=== PATIENT | female | born 1940 | race Caucasian/White ===

== ENCOUNTER 2018-01-10 05:32 | Inpatient (IN) | payer OTHER, MEDICARE ==
[2018-01-03 13:03] LABS: URINE BILIRUBIN NEGATIVE (Negative); URINE BLOOD NEGATIVE (Negative); URINE CLARITY CLEAR; URINE COLOR YELLOW; URINE GLUCOSE-RANDOM* NEGATIVE (Negative); URINE KETONES TRACE (Negative); URINE LEUKOCYTES-REFLEX NEGATIVE (Negative); URINE NITRITE-REFLEX NEGATIVE (Negative); URINE PROTEIN (DIPSTICK) NEGATIVE (Negative); URINE SPECIFIC GRAVITY >= 1.030 (1.005-1.035); URINE UROBILINOGEN 0.2 E.U./dl (0.2-1.0)
[2018-01-03 13:04] LABS: HEMATOCRIT 41.2 % (37.0-47.0); HEMOGLOBIN 13.8 gm/dL (12.0-15.0); MCH 29.7 pg (26.0-34.0); MCHC 33.6 g/dL (28.0-37.0); MCV 88.3 fL (80.0-100.0); RBC 4.66 mil/uL (4.20-5.00); RDW 14.3 % (10.5-14.5)
[2018-01-03 13:09] LABS: ALBUMIN 3.6 g/dL (3.4-5.0); CALCIUM 9.3 mg/dL (8.5-10.1); CREATININE 0.8 mg/dL (0.6-1.0); POTASSIUM 4.1 mmol/L (3.5-5.1)
[2018-01-03 13:15] LABS: PROTIME 9.9 Seconds (9.3-11.4)
[~2018-01-10] VITALS: Ht 170.2 cm; Wt 79.0 kg
--- NOTE | ~2018-01-10 | EKG ---
[address] [address] ELECTROCARDIOGRAM REPORT Name: WALLY SONG Room #: PRE IN .#: [id number] Admission: Attend Phys: Prasanth Avila MD Discharge: Date of : 36 Report #: [id number] THIS REPORT FOR: //name// [facility] Test Date: 2018-01-03 Test Time: 12:57:05 Pat Name: WALLY SONG Department: Room: Gender: F Still Cleaner: ana : 1940 Requested By: Prasanth Avila Order Number: [id number] MD: Stevenson Howell Measurements Intervals [place] Rate: 68 P: 42 OH: 166 QRS: -64 QRSD: 117 T: 55 QT: 396 QTc: 422 Interpretive Statements Sinus rhythm Left anterior fascicular block Nonspecific intraventricular conduction delay No previous ECG available for comparison Electronically Signed On 01-03-2018 17:17:44 CDT by Stevenson Howell [email or web address] <ELECTRONICALLY SIGNED> By: Stevenson Howell MD, [facility] 01/03/18 1717 1257 [id number] Stevenson Howell MD, FACC /EPI
--- NOTE | ~2018-01-10 | O ---
[facility] [place] [address] [place] [address] OPERATIVE REPORT Name: WALLY SONG Room #: 405-P ADM IN M.R.#: [id number] Admission: 01/10/18 Attend Phys: Prasanth Avila MD Discharge: Date of : 38 Report #: [id number] THIS REPORT FOR: //name// CC: Zena Avila DATE OF SERVICE: 01/10/2018 PREOPERATIVE DIAGNOSIS: Right hip osteoarthritis. POSTOPERATIVE DIAGNOSIS: Right hip osteoarthritis. PROCEDURE: Right total hip arthroplasty. SURGEON: Prasanth Avila MD. ENVIRONMENTAL ASSISTANT: Yani Aguilar PA-C. ANESTHESIA: General endotracheal. INDICATIONS FOR ENVIRONMENTAL ASSISTANT: Throughout the case, extensive retraction and manipulation of the hip was required including dislocation and reduction of the hip. This was afforded to me by my family services assistant. IMPLANTS: Wills [employer] Nephew size 13 high offset Synergy press fit stem, a size 54 R3 acetabular cup with 1 acetabular screw, a size 36 plus 0 cobalt chrome head. ESTIMATED BLOOD LOSS: 100 mL. COMPLICATIONS: None. SPECIMENS: None. CONDITION UPON LEAVING THE OPERATING ROOM: Stable. INDICATION FOR PROCEDURE: The patient is a 77-year-old female with severe right hip osteoarthritis. She had failed conservative treatment for this and after discussion with her, she elected for right total hip arthroplasty. DESCRIPTION OF PROCEDURE: Risks, benefits, alternatives, complications were discussed in detail with the patient including but not limited to risk of anesthesia, risk of damage to nerves, arteries, blood vessels, risk for infection, bleeding, risk for continued hip pain, leg length discrepancy, instability and need for reoperation. Informed consent was obtained from the patient. The right hip was appropriately marked in the preoperative holding [address] [address] OPERATIVE REPORT Name: WALLY SONG Room #: 405-P [facility] IN M.R.#: [id number] Admission: 01/10/18 Attend Phys: Prasanth Avila MD Discharge: Date of : 38 Report #: [id number]. IV Ancef was given for preoperative antibiotics. She was brought to the operating room and placed in the supine position on the operating room table. General endotracheal anesthesia was induced without complication. She was then placed in the left lateral decubitus position with the right hip uppermost. Right hip and lower extremity were prepped and draped in normal sterile fashion. Timeout was performed properly identifying the patient and procedure as well as the instrumentation and implants. All in the operating room were in agreement. Standard posterior approach to the hip was made with 10 blade through the skin. Dissection was taken down to the fascia with Bovie cautery and a Bateman elevator was used to clean off the fascia. Fresh 10 blade was used to make a fascial incision. This was taken proximally and distally with curved Espinoza scissor. The trochanteric bursa was taken down. The piriformis tendon was identified, tagged and taken down with Bovie cautery. Short external rotators were also taken down with Bovie cautery. Capsulotomy was made and capsule ends were tagged for later repair. The hip was dislocated and there was extensive osteoarthritic change of the femoral head. Femoral neck cut 1 cm proximal to lesser trochanter based on preoperative templating was made and the femoral head was removed. Deep acetabular retractors were placed. The labrum was removed sharply. Pulvinar was removed with Bovie cautery. Acetabulum was then sequentially reamed up to a size 54, at which point, there was excellent bleeding cancellous bone. A size 53 trial cup was placed and found to have a good fit. Final size 54 R3 acetabular cup was then placed and seated. One acetabular screw for backup fixation was placed. After this, the polyethylene liner for 36 head was placed. Attention was turned to the femur. This was reamed and broached up to a size 13, at which point, the size 13 broach was stable. This was trialed with a high offset neck and a 36 plus 0 head. Hip was reduced, taken through range of motion, found to be stable, found to have equal leg lengths. Hip was dislocated. Broach was removed. A final size 13 high offset Synergy press fit stem was placed. This was trialed again with a size 36 plus 0 head. Hip was reduced, taken through range of motion, found to be stable, found to have equal leg length. Hip was dislocated one last time and the trial head was removed. The final size 36 plus 0 cobalt chrome head was placed. Hip again was reduced, taken through range of motion, found to be stable, found to have equal leg lengths. Wound was thoroughly irrigated with normal saline. A periarticular injection consisting of morphine, ropivacaine, epinephrine, Toradol was placed around the hip joint. A gram of vancomycin was placed deep in the joint. The piriformis and capsule were repaired with 0 FiberWire. The fascia was closed with 0 Vicryl, skin was closed with 2-0 Vicryl, 3-0 Monocryl. Dermabond and VIJAY dressing was applied. The patient tolerated this procedure well and went to recovery room under care of anesthesia postoperatively. <ELECTRONICALLY SIGNED> By: Prasanth Avila MD 01/13/18 1133 1428 1457 Prasanth Avila MD /nt
[~2018-01-10 05:32] MED LIST: ASPIR 8181 M1 PO; CELEBREX 200 M200 M1 PO; SIMVASTATIN40 MG PO
[2018-01-10 10:53] VITALS: BP 135/63
[2018-01-10 17:31] VITALS: BP 115/53
[2018-01-10 20:00] VITALS: BP 114/52
[2018-01-11] VITALS: BP 106/52
[2018-01-11 04:00] VITALS: BP 105/43
[2018-01-11 05:24] LABS: HEMATOCRIT 33.3 % (37.0-47.0); HEMOGLOBIN 11.2 gm/dL (12.0-15.0); MCH 29.9 pg (26.0-34.0); MCHC 33.6 g/dL (28.0-37.0); MCV 89.1 fL (80.0-100.0); RBC 3.74 mil/uL (4.20-5.00); RDW 14.2 % (10.5-14.5)
[2018-01-11 07:54] VITALS: BP 105/57
[2018-01-11 16:51] VITALS: BP 105/58
[2018-01-11 21:09] VITALS: BP 104/52
[2018-01-12 04:13] VITALS: BP 129/63
[2018-01-12 05:27] LABS: HEMATOCRIT 32.7 % (37.0-47.0); MCH 30.1 pg (26.0-34.0); MCHC 33.6 g/dL (28.0-37.0); MCV 89.6 fL (80.0-100.0); RBC 3.65 mil/uL (4.20-5.00); RDW 14.4 % (10.5-14.5); WBC 9.7 thou/uL (4.0-11.0)
[2018-01-12 07:17] VITALS: BP 146/60
[2018-01-12 16:20] VITALS: BP 132/54
[2018-01-12 20:07] VITALS: BP 122/69
[2018-01-13 04:44] VITALS: BP 135/61
[2018-01-13 05:28] LABS: HEMATOCRIT 32.1 % (37.0-47.0); HEMOGLOBIN 10.8 gm/dL (12.0-15.0); MCH 29.8 pg (26.0-34.0); MCHC 33.6 g/dL (28.0-37.0); MCV 88.8 fL (80.0-100.0); RBC 3.61 mil/uL (4.20-5.00); RDW 14.4 % (10.5-14.5); WBC 9.4 thou/uL (4.0-11.0)
[2018-01-13 07:40] VITALS: BP 144/56
[2018-01-13 09:58] VITALS: BP 144/56
[2018-01-13] MEDS ORDERED: HYDROCODON-ACE1 EAC7 PO (11:31)
[2018-01-13] MEDS ORDERED: NEURONTIN 300300 M1 PO (11:31)
[2018-01-13] MEDS ORDERED: TRI-BUFFERED A325 M1 PO (11:31)
[2018-01-13 12:00] VITALS: BP 144/56
[2018-01-13 13:40] VITALS: BP 144/56
== END 2018-01-13 15:07 | disposition home health service (06) | DRG 470 ==
LOC: 4N 05:32 → TBA 05:32 → PRE 15:13 → 4N 17:27 → PRE 01-11 05:33 → ENTRNSPT 01-13 14:50 → EDTRNSPTSTS 01-13 14:58 → 4N 01-13 15:07
PROVIDERS: Orthopaedic Surgery
PROC: 0SR90JA Replacement of Right Hip Joint with Synthetic Substitute, Uncemented, Open Approach (ICD-10-PCS; principal; 2018-01-10)
DX: M16.11 Unilateral primary osteoarthritis, right hip (principal); M17.12 Unilateral primary osteoarthritis, left knee; M17.11 Unilateral primary osteoarthritis, right knee; M19.012 Primary osteoarthritis, left shoulder; M19.011 Primary osteoarthritis, right shoulder
CPT/HCPCS: 10790; 50010; 50101; 50382; 50414; 51771; 53000; 53078; 53367; 54118; 56524; 56527; 56528; 56530; 57095; 62110; 62900; 70005

== ENCOUNTER → 2020-11-12 | Outpatient (CLI) | payer OTHER, MEDICARE ==
[~2020-11-12] MED LIST changes: +HYDROCODON-ACE1 EAC7 PO; +NEURONTIN 300300 M1 PO; +TRI-BUFFERED A325 M1 PO; +TYLENOL EXTRA500 MG PO
== END ==
LOC: LAB 11:12
PROVIDERS: ATTEND Orthopaedic Surgery
DX: Z01.812 Encounter for preprocedural laboratory examination (principal); Z20.822 Contact with and (suspected) exposure to COVID-19

== ENCOUNTER 2020-11-18 10:10 | Inpatient (IN) | payer OTHER, MEDICARE ==
[2020-11-12 10:50] LABS: URINE BILIRUBIN NEGATIVE (Negative); URINE BLOOD TRACE (Negative); URINE CLARITY CLEAR; URINE COLOR YELLOW; URINE GLUCOSE-RANDOM* NEGATIVE (Negative); URINE KETONES NEGATIVE (Negative); URINE LEUKOCYTES-REFLEX TRACE (Negative); URINE NITRITE-REFLEX NEGATIVE (Negative); URINE PROTEIN (DIPSTICK) NEGATIVE (Negative); URINE UROBILINOGEN 0.2 E.U./dl (0.2-1.0)
[2020-11-12 10:55] LABS: HEMATOCRIT 43.2 % (37.0-47.0); HEMOGLOBIN 14.1 gm/dL (12.0-15.0); MCH 29.8 pg (26.0-34.0); MCHC 32.6 g/dL (28.0-37.0); MCV 91.5 fL (80.0-100.0); RBC 4.72 mil/uL (4.20-5.00); RDW 14.3 % (10.5-14.5); WBC 7.8 thou/uL (4.0-11.0)
[2020-11-12 11:08] LABS: PROTIME 10.3 Seconds (9.3-11.4)
[2020-11-12 11:19] LABS: ALBUMIN 4.1 g/dL (3.4-5.0); CALCIUM 9.2 mg/dL (8.5-10.1); CREATININE 0.8 mg/dL (0.6-1.0); POTASSIUM 4.3 mmol/L (3.5-5.1)
[~2020-11-18] VITALS: Ht 172.7 cm; Wt 77.1 kg
[2020-11-18 12:14] VITALS: BP 163/74
[2020-11-18 15:45] VITALS: BP 150/63
[2020-11-18 16:00] VITALS: BP 155/79
[2020-11-18 16:15] VITALS: BP 153/124
[2020-11-18 16:30] VITALS: BP 144/72
--- NOTE | 2020-11-18 19:26 | NUR ---
[age] YEAR OLD FEMALE ADMITTED TO [facility] ROOM 445 DUE TO HAVING A LEFT TOTAL KNEE REPLACEMENT. VIJAY DRESSING AND POLAR PACK IN PLACE. VSS, IVF INFUSING PER ORDER. PT DENEIS PAIN/SOA DURING ADMISSION ASSSESSMENT. PT BROTHER AT BEDSIDE. WILL CONTINUE TO MONITOR.
[2020-11-18 19:51] VITALS: BP 130/60
--- NOTE | 2020-11-19 04:41 | NUR ---
PT S/P L KNEE. POLAR EVELIN AND VIJAY DRSG IN PLACE. LEFT FOOT WITH GOOD CSM. SCDS AND TEDS IN PLACE. PT ASSISTED TO THE BSC, HAD DIFFICULTY OR RATHER NO STRENGTH TO GET BACK IN BED-REQUIRING ASSIST X 3. PT GIVEN NORCO FOR 5/10 PAIN. AFEBRILE. DENIES ANY GI OR DISCOMFORT. APPEARS TO BE RESTING COMFORTABLY AT THIS TIME.
[2020-11-19 05:24] LABS: HEMATOCRIT 33.1 % (37.0-47.0); HEMOGLOBIN 10.9 gm/dL (12.0-15.0); MCH 30.5 pg (26.0-34.0); MCV 92.5 fL (80.0-100.0); RBC 3.58 mil/uL (4.20-5.00); RDW 14.4 % (10.5-14.5); WBC 11.3 thou/uL (4.0-11.0)
[2020-11-19 09:25] VITALS: BP 116/75
--- NOTE | 2020-11-19 11:24 | NUR ---
ASSUMED PT CARE THIS AM. PT VSS, A&OX4. PT PLEASANT, COOPERATIVE WITH STAFF. MAKES NEEDS KNOWN. PAIN MANAGED WITH PAIN MEDS GIVEN. DRESSING ON LEFT KNEE IS C/D/I. POLAR PACK, TEODORO HOSE, AND SCD'S ON. CALLING APPROPRIATELY WHEN NEEDED. FALL PRECAUTIONS ARE IN PLACE, USING A BED AMES WHEN NEEDED. IV PATENT. MEDS TAKEN WELL THIS AM.
--- NOTE | 2020-11-19 13:15 | NUR ---
ASSESSMENT: CM REVIEWED CHART AND SPOKE WITH PATIENT. PT IS S/P TOTAL KNEE REPLACEMENT. PT LIVES IN A HOME ALONE AND STATES HER THIS PAST YEAR. PT REPORTS THAT SHE HAS ABOUT TWO STEPS TO ENTER THE HOME AND NO STEPS SHE HAS TO USE ONCE INSIDE. PT REPORTS THAT SHE NORMALLY USES HER WALKER AT ALL TIMES BUT ALSO HAS A CANE AT HOME. PT STATES SHE IS PLANNING ON GOING TO [facility] AT DISCHARGE AND REPORTS SHE HAS ALREADY SPOKEN TO [facility] BEFORE ADMITTING. CM NOTIFIED TERRI PAVAN AT [facility] AND SENT REFERRAL. CM ALSO FAXED UPDATED THERAPY NOTES AND NEGATIVE COVID TEST PRIOR TO SURGERY (PAVAN REPORTS THEY DO NOT NEED ANOTHER COVID TEST COMPLETED). [facility] IS REVIEWING REFERRAL. PT CONTINUING TO WORK WITH THERAPY AND PAIN MANAGEMENT. CM WILL CONTINUE TO FOLLOW TO ASSIST NEEDED.
[2020-11-19 20:17] VITALS: BP 137/69
--- NOTE | 2020-11-19 23:51 | NUR ---
ASSESSMENT COMPLTED. PT IS ALERT AND ORIENTED.VIJAY DRSG AND POLAR EVELIN IN PLACE TO LEFT KNEE. PRN NORCO GIVEN. PT VOIDING OKAY.GOOD CSM TO LEFT FOOT. NO FURTHER CONCERNS AT THIS TIME.
[2020-11-20 05:15] LABS: HEMATOCRIT 32.1 % (37.0-47.0); HEMOGLOBIN 10.7 gm/dL (12.0-15.0); MCH 30.6 pg (26.0-34.0); MCHC 33.4 g/dL (28.0-37.0); MCV 91.6 fL (80.0-100.0); RBC 3.51 mil/uL (4.20-5.00); RDW 14.2 % (10.5-14.5); WBC 10.1 thou/uL (4.0-11.0)
[2020-11-20 07:15] VITALS: BP 128/56
--- NOTE | 2020-11-20 08:54 | NUR ---
ON-GOING ASSESSMENT: CM REVIEWED CHART. CM REACHED OUT TO TERRI BROWNE AT [facility] WHO REPORTS THEY CAN ACCEPT PT. PER ORTHO NOTE PATIENT WILL LIKELY BE STABLE FOR DISCHARGE TUESDAY 11/21, CM NOTIFIED GIBRAN AT [facility] WHO REPORTS THEY CAN PLAN A TENTATIVE PICKUP TIME FOR TOMORROW 11/21/20 AT 1300. CM NOTIFIED ATTENDING. CM WILL CONTINUE TO FOLLOW TO ASSIST NEEDED.
--- NOTE | 2020-11-20 10:13 | O ---
[facility] [place] [address] [place] [address] OPERATIVE REPORT Name: WALLY SONG Room #: 445-P ADM IN M.R.#: [id number] Admission: 11/18/20 Attend Phys: Prasanth Avila MD Discharge: Date of : 38 Report #: [id number] THIS REPORT FOR: cc: FAM - Family physician unknown FAM - Family physician unknown Prasanth Avila MD ~ DATE OF SERVICE: 11/18/2020 PREOPERATIVE DIAGNOSIS: Left knee osteoarthritis. POSTOPERATIVE DIAGNOSIS: Left knee osteoarthritis. PROCEDURE: Left total knee arthroplasty using Navio robotic transportation assistant. SURGEON: Prasanth Avila MD. MOBILE BATTERY TECHNICIAN: Yani Aguilar PA-C. INDICATIONS FOR MOBILE BATTERY TECHNICIAN: Throughout the case, extensive retraction and manipulation of the knee was required. This was afforded to me by my transportation assistant. ANESTHESIA: LMA with adductor canal block. IMPLANTS: Wills and Nephew size 6 cobalt chrome Journey II BCS femur, a size 4 tibia, size 12 constrained polyethylene and size 35 patella. TOURNIQUET TIME: 54 minutes. ESTIMATED BLOOD LOSS: 25 mL. COMPLICATIONS: None. SPECIMENS: None. CONDITION UPON LEAVING THE OPERATING ROOM: Stable. INDICATIONS FOR PROCEDURE: The patient is an 80-year-old female with left knee valgus osteoarthritis. She had failed conservative measures for this and after discussion with her, she elected for left total knee arthroplasty. DESCRIPTION OF PROCEDURE: Risks, benefits, alternatives, complications were discussed in detail with the patient including but not limited to risk of anesthesia, risk of damage to nerves, arteries, blood vessels, risk for infection, bleeding, risk for continued knee pain, need for reoperation. Informed consent was obtained from the patient. Left knee was appropriately [facility] [address] [place] [address] OPERATIVE REPORT Name: WALLY SONG Room #: 445-P ADM IN M.R.#: [id number] Admission: 11/18/20 Attend Phys: Prasanth Avila MD Discharge: Date of : 38 Report #: [id number] marked in the preoperative holding area. IV Ancef was given for preoperative antibiotics. She was brought to the operating room and placed in supine position on operating room table. LMA anesthesia was induced without complication. Tourniquet was placed on the left thigh. Left lower extremity was prepped and draped in normal sterile fashion. Timeout was performed properly identifying the patient and procedure as well as the instrumentation and implants. All in the operating room were in agreement. Left lower extremity was exsanguinated, tourniquet was inflated. Tourniquet time was 54 minutes. Standard midline approach to knee was made with a #10 blade through the skin. Dissection was taken down sharply to the fascia and deep flaps were developed medially and laterally. Fresh #10 blade was used to make a medial parapatellar arthrotomy and the knee was inspected. There was severe lateral compartment osteoarthritis with moderate medial and patellofemoral osteoarthritis. ACL and PCL were removed sharply. Reference pins were placed in the femur and the tibia. The knee was then digitally mapped using the Embedly robotic system. Intraoperative plan was made and we sized the size 6 femur with a size 4 tibia and a 10 spacer. After acceptance of the intraoperative plan, the distal femoral cut was made with Navio bur. Distal femoral cutting block was pinned in place and chamfer cuts were made. Attention was then turned to the tibia. Remainder of the menisci removed with Bovie cautery. Tibial resection guide was pinned in place using the Navio for placement and tibial resection was made. After this, flexion and extension gaps were checked and found to have good balance laterally in flexion and extension. She had significant laxity medially given her underlying valgus deformity. It was felt we could make up for this with a constrained implant. After this, tibia was sized, found to be a size 4. Size 4 tibial trial was placed, pinned and punched. A size 6 femoral trial was placed and box cut was made. This was then trialed with a size 10 up to a size 12 polyethylene and a size 12 constrained polyethylene demonstrated 1-2 mm of laxity laterally and 2-3 mm of laxity medially throughout range of motion. After this, 9 mm of bone was resected from the posterior surface of the patella and a size 35 patellar trial button was placed. Knee was taken through range of motion, found to be stable, found to have good patellar tracking. Trial components were removed. Bony ends were thoroughly irrigated with normal saline. A final size 4 tibia, size 6 cobalt chrome Journey II BCS femur and a size 35 patella were cemented in place using standard cementation techniques. While the cement cured, a periarticular injection consisting of morphine, ropivacaine, epinephrine, Toradol was placed around the knee joint capsule. After the cement cured, tourniquet was deflated. Hemostasis was obtained with Bovie cautery. Final size 12 constrained polyethylene was placed. A gram of vancomycin was placed deep in the joint. Fascia was closed with 0 Vicryl, skin was closed with 2-0 Vicryl, 3-0 Monocryl. Dermabond and a VIJAY dressing were applied. The patient tolerated this [facility] [address] [place] [address] OPERATIVE REPORT Name: WALLY SONG Room #: 445-P ADM IN M.R.#: [id number] Admission: 11/18/20 Attend Phys: Prasanth Avila MD Discharge: Date of : 38 Report #: [id number] procedure well and went to recovery room under care of anesthesia postoperatively. <ELECTRONICALLY SIGNED> By: Prasanth Avila MD 11/20/20 1013 1618 1812 Prasanth Avila MD /nt
[2020-11-20] MEDS ORDERED: MS CONTIN15 MG PO (12:39)
[2020-11-20] MEDS ORDERED: NEURONTIN 300M300 M2 PO (12:41)
[2020-11-20] MEDS ORDERED: BAYER CHEWABLE81 MG PO (12:41)
[2020-11-20 16:20] VITALS: BP 113/52
[2020-11-20 18:59] VITALS: BP 111/54
--- NOTE | 2020-11-20 19:35 | NUR ---
PT CARE ASSUME AT 0700. A&Ox4. PENDING DC ORDERS IN PLACE FOR TOMORROW. IV PATENT WITH NO REDNESS OR EDEMA, SALINE LOCKED. VIJAY DRESSING/POLAR PACK/SCD'S IN PLACE. VIJAY DRESSING DRY AND INTACT. UP TO THE BEDSIDE COMMODE TODAY. ON ROOM AIR. PAIN MANAGED WELL WITH PAIN MEDICATION ON BOARD. FALL PROTOCOL IN PLACE. CALL LIGHT IN REACH.
[2020-11-21 03:52] VITALS: BP 132/63; BP 133/66
--- NOTE | 2020-11-21 05:00 | NUR ---
ALERT AND ORIENTED. GIVEN TYLENOL FOR FEVER.USING I/S. MILD HEADACHE.
[2020-11-21 05:26] LABS: HEMOGLOBIN 10.2 gm/dL (12.0-15.0); MCH 30.5 pg (26.0-34.0); MCHC 32.8 g/dL (28.0-37.0); MCV 92.8 fL (80.0-100.0); RBC 3.34 mil/uL (4.20-5.00); RDW 14.3 % (10.5-14.5); WBC 9.9 thou/uL (4.0-11.0)
[2020-11-21 08:00] VITALS: BP 129/65
--- NOTE | 2020-11-21 10:08 | NUR ---
ON-GOING ASSESSMENT: CM REVIEWED CHART. PLANS ARE FOR PATIENT TO DISCHARE TODAY TO [facility]. CM NOTIFIED TERRI BROWNE AT [facility]. TRANSPORTATION HAS BEEN ARRANGED FOR 1300. BEDSIDE RN AWARE WELL PATIENT. CHART COPY WAS ORDERED. CM FAXED DISCHARE PAPERWORK TO [facility] LONG WITH NEGATIVE COVID TEST FROM BEFORE SURGERY AND CONFIRMED THEY RECEIVED IT. BEDSIDE RN HAS THE NUMBER FOR REPORT. PT REPORTS NO FURTHER NEEDS FROM CM. CASE CLOSED.
--- NOTE | 2020-11-21 11:26 | NUR ---
ASSUMED PT CARE THIS AM. PT A&OX4, VSS. COMPLAINS OF PAIN IN HER LEFT KNEE WITH MOVEMENT. PT UP TO THE BEDSIDE COMMODE WITH ASSIST. ENCOURAGED TO DRINK FLUIDS, IV SALINE LOCKED.TOOK MEDS WELL WITHOUT COMPLAINT. PT REMAINS CONTINENT.ON ROOM AIR. FALL PRECAUTIONS IN PLACE.
== END 2020-11-21 13:45 | DRG 470 ==
LOC: OR 10:10 → TBA 10:11 → OR 10:16 → 4S 15:38 → OR 15:39 → 4S 15:39
PROVIDERS: ADMIT Orthopaedic Surgery; ATTEND Orthopaedic Surgery
PROC: 0SRD0J9 Replacement of Left Knee Joint with Synthetic Substitute, Cemented, Open Approach (ICD-10-PCS; principal; 2020-11-18)
PROC: 8E0Y0CZ Robotic Assisted Procedure of Lower Extremity, Open Approach (ICD-10-PCS; principal; 2020-11-18)
DX: M17.12 Unilateral primary osteoarthritis, left knee (principal)
CPT/HCPCS: 10102; 50010; 50101; 50415; 50954; 51130; 51225; 51320; 53000; 53078; 54118; 56527; 56528; 57095; 57103; 57110; 57127; 57180; 58239; 62110; 62900; 64043; 65060; 70005